=== PATIENT | female | born 1950 | race Caucasian/White ===

== ENCOUNTER 2020-11-09 23:16 | Emergency (ER) | payer MEDICARE, OTHER ==
[~2020-11-09 23:16] MED LIST: ALDACTONE25 MG PO; AMARYL2 MG PO; BASAGLAR K100 UNIT/1 SC; CANNABIDIOL PO/SL; FEMARA2.5 MG PO; HUMULIN N100 UNIT/1 SC; JANUVIA50 MG PO; LISINOPRIL HCTZ; MEDROL 4MG DOSEP4 MG PO; NEURONTIN300 MG PO; VENTOLIN (2.5 MG/3 M INH; ZPAK PO
[2020-11-10 00:42] LABS: BASOPHIL 0.5 % (0-2); EOSINOPHIL 2.9 % (0-7); HCT 35.3 % (37.0-47.0); HGB 11.3 g/dl (12.5-16.0); LYMPHOCYTE 5.7 % (15-48); MCH 30.8 pg (25.0-31.0); MCV 96.2 fL (78.0-100.0); MONOCYTE 5.4 % (0-12); MPV 11.6 fL (6.0-9.5); NEUTROPHIL 84.9 % (41-80); NRBC 0; PLT 224 K/uL (150-400); RBC 3.67 M/uL (4.20-5.40); RDW 13.3 % (11.5-14.0); WBC 8.4 K/uL (4.0-10.5)
[2020-11-10 00:46] LABS: BILIRUBIN 1+ mg/dL (NEGATIVE); BLOOD NEGATIVE Ery/uL (NEGATIVE); CLARITY CLEAR (CLEAR); COLOR YELLOW (YELLOW); GLUCOSE (U) NORMAL (NORMAL); LEUKOCYTES NEGATIVE Leu/uL (NEGATIVE); NITRITE NEGATIVE (NEGATIVE); PROTEIN TRACE (LOW) mg/dL (NEGATIVE); pH 6.5 (5.0-9.0)
[2020-11-10 01:02] LABS: ALBUMIN 3.3 g/dL (3.4-5.0); BILIRUBIN - TOTAL 0.7 mg/dL (0.2-1.0); BUN/CREAT RATIO (CALC) 14.2 RATIO; CREATININE 1.41 mg/dL (0.51-0.95); GLOBULIN (CALCULATION) 3.9 g/dL; MAGNESIUM 1.7 mg/dL (1.8-2.4); TOTAL PROTEIN 7.2 g/dL (6.4-8.2)
[2020-11-10 01:12] LABS: AMORPHOUS URATES CRYSTALS MODERATE; BACTERIA TRACE; SQUAMOUS EPITHELIAL CELLS RARE; URINARY RBC RARE; URINARY WBC RARE
[2020-11-10 01:18] LABS: LACTIC ACID 1.3 mmol/L (0.4-1.9)
== END 2020-11-10 02:44 | disposition home or self-care (01) ==
LOC: FER 23:16
PROVIDERS: Emergency Medicine
DX: R41.0 Disorientation, unspecified (principal); N39.0 Urinary tract infection, site not specified; I11.0 Hypertensive heart disease with heart failure; I50.9 Heart failure, unspecified; E11.9 Type 2 diabetes mellitus without complications
CPT/HCPCS: 36415; 70450; 80053; 81001; 82728; 83605; 83690; 83735; 84145; 84484; 85025; 87040; 87088; 93005